=== PATIENT | female | born 1990 | race Caucasian/White ===

== ENCOUNTER 2019-07-18 17:57 | Emergency (ER) | payer SELFPAY ==
[~2019-07-18] VITALS: Ht 144.8 cm; Wt 90.7 kg
[2019-07-18] MEDS ORDERED: CYMBALTA30 MG PO (18:07)
[2019-07-18] MEDS ORDERED: KLONOPIN1 MG PO (18:08)
[2019-07-18] MEDS ORDERED: PROPRANOLOL HCL10 MG PO (18:09)
[2019-07-18] MEDS ORDERED: CLOZARIL25 MG PO (18:10)
== END 2019-07-18 18:40 | disposition home or self-care (01) ==
LOC: ED 17:57
DX: R56.9 Unspecified convulsions (principal); F17.200 Nicotine dependence, unspecified, uncomplicated
CPT/HCPCS: 99284